=== PATIENT | female | born 1960 | race Caucasian/White ===

== ENCOUNTER → 2024-12-26 14:25 | Outpatient (REF) | payer OTHER, SELFPAY | LOC: WDC 14:25 | PROVIDERS: ATTENDING PHYSICIAN Student in an Organized Health Care Education/Training Program | DX: Z12.31 Encounter for screening mammogram for malignant neoplasm of breast (principal) | CPT/HCPCS: 77063; 77067 ==

== ENCOUNTER → 2025-05-09 13:18 | Outpatient (REF) | payer OTHER, SELFPAY | LOC: RAD 13:18 | PROVIDERS: ATTENDING PHYSICIAN Internal Medicine; FAMILY PHYSICIAN Student in an Organized Health Care Education/Training Program | DX: K11.8 Other diseases of salivary glands (principal) | CPT/HCPCS: 76536 ==

== ENCOUNTER → 2025-06-11 12:17 | Outpatient (REF) | payer OTHER, SELFPAY | LOC: MRI 3T 12:17 | PROVIDERS: ATTENDING PHYSICIAN Student in an Organized Health Care Education/Training Program | DX: R22.0 Localized swelling, mass and lump, head (principal) | CPT/HCPCS: 70543; A9575 ==

== ENCOUNTER → 2025-09-18 14:51 | Outpatient (REF) | payer OTHER, SELFPAY | LOC: RAD 14:51 | PROVIDERS: ATTENDING PHYSICIAN Otolaryngology; FAMILY PHYSICIAN Student in an Organized Health Care Education/Training Program | DX: D49.2 Neoplasm of unspecified behavior of bone, soft tissue, and skin (principal) | CPT/HCPCS: 76536 ==